=== PATIENT | male | born 2005 | race Caucasian/White ===

== ENCOUNTER 2025-07-04 13:17 | Emergency (ER) | payer MEDICAID | END 2025-07-04 14:01 | disposition home or self-care (01) | LOC: JP.ED 13:17 | DX: Z48.01 Encounter for change or removal of surgical wound dressing (principal); K21.9 Gastro-esophageal reflux disease without esophagitis; J45.909 Unspecified asthma, uncomplicated; Z88.0 Allergy status to penicillin; Z79.899 Other long term (current) drug therapy | CPT/HCPCS: 99282 ==